=== PATIENT | male | born 1940 | race American Indian/Alaskan Native ===

== ENCOUNTER 2017-07-20 17:09 | Observation (INO) | payer MEDICARE ==
[2017-07-20 18:37] LABS: #Eosinphils 0.1 thou/uL (0.0-0.7); #Lymphocytes 1.2 thou/uL (1.20-3.40); #Monocytes 0.4 thou/uL (0.11-0.59); #Neutrophils 7.1 thou/uL (1.40-6.50); %Basophils 0.5 % (0.0-1.0); %Eosinophils 0.7 % (0.0-10.0); %Lymphocytes 13.3 % (21.0-51.0); %Monocytes 4.5 % (0.0-10.0); Hemoglobin 15.4 g/dL (14.0-18.0); Mean Corpuscular HGB CONC 33.4 g/dL (32.0-36.0); Mean Corpuscular Hemoglobin 31.3 pg (27.0-31.0); Mean Corpuscular Volume 93.6 fl (80.0-94.0); Mean Platelet Volume 7.1 fL (7.4-10.4); Platelet Count 174 thou/uL (130-400); RBC Distribution Width 11.1 % (11.5-14.5); Red Blood Cell (RBC) Count 4.92 mill/uL (4.70-6.10); White Blood Cell (WBC) Count 8.7 thou/uL (4.8-10.8)
[2017-07-20] MEDS ORDERED: Ondansetron HCl/PF 4 MG/2 ML Vial ONE ×2 (18:53→19:42)
[2017-07-20 18:58] LABS: ALT (SGPT) 18 U/L (8-55); AST (SGOT) 23 U/L (5-34); Albumin 4.7 g/dL (3.4-4.8); Alkaline Phosphatase 77 U/L (40-150); Anion Gap 13 mmol/L (10-20); BUN (Urea Nitrogen) 13 mg/dL (8.4-25.7); Bilirubin, Total 0.8 mg/dL (0.2-1.2); Calc. Creatinine Clearance 0 mL/min (70-130); Calcium 9.8 mg/dL (7.8-10.44); Carbon Dioxide 29 mmol/L (23-31); Chloride 91 mmol/L (98-107); Estimated GFR-MDRD 87; Globulin 3.2 g/dL (2.4-3.5); Glucose 128 mg/dL (83-110); Potassium 4.5 mmol/L (3.5-5.1); Protein, Total 7.9 g/dL (5.8-8.1); Sodium 128 mmol/L (136-145)
[2017-07-20] MEDS ORDERED: Labetalol HCl 100 MG/20 ML VIAL SLOW IVP SCH (20:15)
[2017-07-20 20:30] LABS: Clarity Clear (Clear); pH, Urine 7.5 (5.0-9.0)
[2017-07-20 20:31] LABS: Bilirubin Negative (Negative); Blood, Urine Trace (Negative); Glucose, Urine (Dipstick) Negative (Negative); Leukocyte Negative (Negative); Nitrite Negative (Negative); Protein, Urine (Dipstick) 100 mg/dL (Neg-Trace); Urobilinogen 0.2 mg/dL (0.2-1.0)
[2017-07-20 20:39] LABS: Bacteria/HPF None Seen HPF (None Seen); Hyaline Casts/LPF 0-3 HYALINE CAST LPF (0-3 Hyaline); Pathc Cast-AUWi Flag 0.13 (0-2.49); Squamous Epithelial None Seen HPF (0-3); WBC/HPF None Seen HPF (0-3)
[2017-07-20] MEDS ORDERED: Promethazine HCl 25 MG/ML VIAL ONE (20:41)
[2017-07-20] MEDS ORDERED: Labetalol HCl 100 MG/20 ML VIAL ONE (20:41)
[2017-07-20 20:58] LABS: CKMB 1.5 ng/mL (0-6.6)
--- NOTE | 2017-07-20 22:02 | RAD ---
CHEST ONE VIEW ABDOMEN TWO VIEWS: History: Vomiting. FINDINGS/IMPRESSION: The heart size is normal. The lungs are clear. No free air or differential air fluid levels are seen. The bowel gas pattern is unremarkable. There are degenerative changes of the spine. POS: [facility]
[2017-07-20] MEDS ORDERED: Nitroglycerin 2% Ointment 1 INCH/1 GM Packet ONE (22:47)
[2017-07-21 00:12] LABS: Troponin I 0.014 ng/mL (< 0.028)
[2017-07-21] MEDS ORDERED: Ondansetron ODT 4 MG TAB SL PRN (00:20)
[2017-07-21] MEDS ORDERED: Acetaminophen 325 MG TAB PO PRN ×2 (00:20→20:07)
[2017-07-21] MEDS ORDERED: Ondansetron HCl/PF 4 MG/2 ML Vial IVP PRN (00:20)
[2017-07-21] MEDS ORDERED: Labetalol HCl 100 MG/20 ML VIAL SLOW IVP PRN (00:21)
[2017-07-21] MEDS ORDERED: Sodium Chloride 0.9% 1,000 ML IV SCH (01:00)
[2017-07-21] MEDS: Sodium Chloride 0.9% 1,000 ML IV SCH ×3 (02:23→22:16)
[2017-07-21 03:35] LABS: Anion Gap 14 mmol/L (10-20); BUN (Urea Nitrogen) 13 mg/dL (8.4-25.7); Calc. Creatinine Clearance 93 mL/min (70-130); Calcium 8.5 mg/dL (7.8-10.44); Carbon Dioxide 25 mmol/L (23-31); Chloride 93 mmol/L (98-107); Estimated GFR-MDRD Greater than 90; Glucose 120 mg/dL (83-110); Magnesium 1.6 mg/dL (1.6-2.6); Potassium 3.8 mmol/L (3.5-5.1); Sodium 128 mmol/L (136-145)
[2017-07-21 03:39] LABS: Troponin I 0.013 ng/mL (< 0.028)
[2017-07-21] MEDS: Losartan 25 MG TAB PO SCH (09:25)
[2017-07-21] MEDS: Flecainide 50 MG TAB PO SCH ×2 (09:25→20:22)
[2017-07-21] MEDS: Aspirin 81 mg Enteric Coated Tablet PO SCH (09:25)
[2017-07-21] MEDS: Clopidogrel Bisulfate 75 MG TAB PO SCH (09:25)
[2017-07-21] MEDS: OXcarbazepine 300 MG TAB PO SCH ×2 (09:26→20:22)
[2017-07-21] MEDS: Rosuvastatin 20 MG TAB PO SCH (09:26)
--- NOTE | 2017-07-21 14:56 | HP ---
HISTORY OF PRESENT ILLNESS: Patient is a 77-year-old male who presented to the emergency room compla ining of nausea, vomiting. The patient has been noting continuous vomiting for approximately 16 hour s prior to admission. He noted he has a history of hypertension, TIA, trigeminal neuralgia, cervical meningioma. He has had intractable vomiting, no diarrhea, no fever, no body aches. He does note ot her members of the family have had some flu-like illnesses. He has not noted any abdominal pain. He states he has tried multiple things to relieve his vomiting. He does note he has been able to pass gas. He has not noted any fever otherwise. He was seen and evaluated in the ER and was found to be slightly hypertensive. He denies any chest pain or shortness of breath otherwise noted. At this time, he is currently resting in bed comfortable, feeling a little bit better. ALLERGIES: He has no known allergies. CURRENT MEDICATIONS: Aspirin 81 mg daily, flecainide 50 mg daily, Vascepa 1 gram daily, Plavix 75 mg daily, Crestor 10 mg daily, famotidine 10 mg daily, losartan 100 mg daily. PAST MEDICAL HISTORY: Significant for hyperlipidemia, he does have a history of trigeminal stuart ralgia, hypertension. He also has a meningioma in the posterior neck. PAST SURGICAL HISTORY: Positive for tonsillectomy. SOCIAL/PERSONAL HISTORY: He does drink. He does not smoke. REVIEW OF SYSTEMS: Gastrointestinal: Positive as above. Genitourinary: Negative. Cardiovascular: Otherwise, negative. Neurological: Otherwise, negative. PHYSICAL EXAMINATION: VITAL SIGNS: Temperature 98.6, pulse 68, respirations 16, O2 sats 95%, blood pressure 106/51. GENERAL: He is alert, active, in no acute distress. HEENT: Normocephalic, atraumatic. Extraocular muscles intact. Sclerae and conjunctivae clear. Thr oat clear. NECK: Supple, full range of motion, no masses. LUNGS: Clear. HEART: Regular rate and rhythm without murmurs, gallops or rubs. ABDOMEN: Soft. Bowel sounds are present and active. There is no hepatosplenomegaly is noted. Ther e is no evidence of rebound or guarding otherwise noted at this time. EXTREMITIES: Reveal no evidence of clubbing, edema or cyanosis otherwise noted. LABORATORY DATA AND X-RAY FINDINGS: His white blood count 8.7, hemoglobin 15.4, hematocrit 46.1, sod ium 128, potassium 3.8, chloride 93, CO2 of 25, BUN 13, creatinine 0.81. Serum troponins are otherwi se negative. Urinalysis is clear. Acute abdominal series shows no evidence of any significant obstr uction, normal bowel pattern is otherwise noted. IMPRESSION: Intractable vomiting seems to be improving at this time, possibly a viral mediated. PLAN: The patient has been placed in observation. We will be continuing monitoring. IV fluids will be given. Further treatment and recommendations based on his improvement.
[2017-07-21 15:33] VITALS: BMI 25.7
[2017-07-21] MEDS ORDERED: HYDROcodone/Acetaminophen 10/325 mg Tablet PO PRN (20:08)
[2017-07-21] MEDS: Benzonatate 100 MG CAP PO SCH (22:15)
[2017-07-22 04:30] LABS: #Eosinphils 0.1 thou/uL (0.0-0.7); #Lymphocytes 2.5 thou/uL (1.20-3.40); #Monocytes 0.8 thou/uL (0.11-0.59); #Neutrophils 5.4 thou/uL (1.40-6.50); %Basophils 0.4 % (0.0-1.0); %Eosinophils 1.5 % (0.0-10.0); %Lymphocytes 27.6 % (21.0-51.0); %Monocytes 9.4 % (0.0-10.0); %Neutrophils 61.1 % (42.0-75.0); Hemoglobin 13.1 g/dL (14.0-18.0); Mean Corpuscular HGB CONC 33.7 g/dL (32.0-36.0); Mean Corpuscular Hemoglobin 31.9 pg (27.0-31.0); Mean Corpuscular Volume 94.7 fl (80.0-94.0); Mean Platelet Volume 7.1 fL (7.4-10.4); Platelet Count 169 thou/uL (130-400); RBC Distribution Width 11.4 % (11.5-14.5); Red Blood Cell (RBC) Count 4.12 mill/uL (4.70-6.10); White Blood Cell (WBC) Count 8.9 thou/uL (4.8-10.8)
[2017-07-22 04:39] LABS: Anion Gap 10 mmol/L (10-20); BUN (Urea Nitrogen) 13 mg/dL (8.4-25.7); Calc. Creatinine Clearance 80 mL/min (70-130); Calcium 8.6 mg/dL (7.8-10.44); Carbon Dioxide 29 mmol/L (23-31); Chloride 99 mmol/L (98-107); Estimated GFR-MDRD 77; Glucose 94 mg/dL (83-110); Sodium 134 mmol/L (136-145)
[2017-07-22 04:58] VITALS: TEMP 98.6
[2017-07-22] MEDS: Benzonatate 100 MG CAP PO SCH (05:57)
[2017-07-22 08:08] VITALS: BP 160/77
--- NOTE | 2017-07-22 08:18 | DPRG ---
DATE OF SERVICE: 07/22/2017 Mr. Zazueta is resting well. He reports no complaints. He is tolerating all p.o. intake. VITAL SIGNS: Temperature 98.6, BP 146/67. LABORATORY: Hemoglobin 13.1, hematocrit 39.0, white blood count 8.9, potassium is 4.0. HOSPITAL SUMMARY: He has resolved his intractable vomiting. He is now tolerating all p.o. liquids. DISCHARGE DIAGNOSES: Intractable vomiting. DATE OF ADMISSION: 07/21/2017 DATE OF DISCHARGE: 07/22/2017 The patient will be discharged home on his home medications. Follow up with me on a p.r.n. basis.
[2017-07-22] MEDS: Clopidogrel Bisulfate 75 MG TAB PO SCH (08:46)
[2017-07-22] MEDS: Losartan 25 MG TAB PO SCH (08:46)
[2017-07-22] MEDS: OXcarbazepine 300 MG TAB PO SCH (08:46)
[2017-07-22] MEDS: Flecainide 50 MG TAB PO SCH (08:47)
[2017-07-22] MEDS: Rosuvastatin 20 MG TAB PO SCH (08:47)
[2017-07-22] MEDS: Aspirin 81 mg Enteric Coated Tablet PO SCH (08:47)
[2017-07-22] MEDS: Sodium Chloride 0.9% 1,000 ML IV SCH (08:51)
== END 2017-07-22 10:52 | disposition home or self-care (01) ==
LOC: ERS 17:09 → 2SW 22:42
PROVIDERS: ADMIT Family Medicine; ATTEND Family Medicine
DX: R11.2 Nausea with vomiting, unspecified (principal); I10 Essential (primary) hypertension; G50.0 Trigeminal neuralgia; E78.5 Hyperlipidemia, unspecified; D23.4 Other benign neoplasm of skin of scalp and neck; Z79.82 Long term (current) use of aspirin; Z79.899 Other long term (current) drug therapy; Z90.89 Acquired absence of other organs; Z86.73 Personal history of transient ischemic attack (TIA), and cerebral infarction without residual deficits
CPT/HCPCS: 74022; 80048 ×2; 80053; 82553; 83690; 83735; 84484 ×3; 85025 ×2; 93005; 96361 ×3; 96372; 96374; 96375; 96376; 99285; G0378; 36415; 81003; 81015; A4216; J2405; J2550

== ENCOUNTER 2018-08-01 08:53 | Outpatient (CLI) | payer MEDICARE ==
--- NOTE | 2018-08-01 11:01 | MRI ---
MRI CERVICAL SPINE WITHOUT CONTRAST: HISTORY: Trigeminal neuralgia. 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 COMPARISON: None. CORRELATION: Brain MRI from 11/02/2016. TECHNIQUE: An MRI of the cervical spine is performed with and without intravenous Gadolinium administration. Mu ltisequential, multiplanar imaging is performed. FINDINGS: Based on current protocol, a left parapharyngeal mass and a right dural prepontine mass cannot be ass essed. In order to assess those lesions, an MRI of the soft tissues of the neck and a brain MRI shou ld be performed, respectively. Both studies should be with and without contrast. There is appropriate T1 marrow signal intensity of the cervical vertebrae. Cervical spine vertebral body height is maintained. There is no fracture. Minimal type II modic changes at C6-C7. There is no prevertebral soft tissue swelling or edema. No MR evidence of ligamentous injury on the sagittal STIR sequence. The visualized brain parenchyma, cervicomedullary junction, cervical cord, and upper thoracic cord yusuf ve normal size and signal intensity. On the sagittal images, there is evidence of an abnormal signal intensity in the right CP angle ciste rn, incompletely evaluated. C2-C3: No significant central canal stenosis. The foramina are patent. C3-C4: No significant central canal stenosis. Mild right and moderate left foraminal narrowing due to uncovertebral hypertrophy. C4-C5: There is a central/left paracentral disk protrusion. There is mass effect and deformity of t he ventral thecal sac. Mild mass effect upon the left hemicord. No cord signal abnormality. Mild c entral canal stenosis. Moderate right and moderate to severe left foraminal narrowing due to uncover tebral hypertrophy. C5-C6: There is moderate loss of disk space height. There is a broad-based disk osteophyte complex. The ventral subarachnoid space is effaced. Minimal flattening of the cervical cord. Mild to moder ate central canal stenosis. No signal abnormality in the cord. Mild right and mild to moderate left foraminal narrowing due to uncovertebral hypertrophy. C6-C7: Broad-based disk osteophyte complex with mild central canal stenosis. The right neural maxi en is patent. Minimal left foraminal narrowing. C7-T1: No significant central canal stenosis or foraminal narrowing. IMPRESSION: 1. Degenerative changes of the cervical spine, as described above. 2. Based on the current protocol, a left parapharyngeal mass and a right cerebellopontine angle cist amita mass cannot be adequately assessed. If there is concern, a pre and post contrast soft tissue nec k MRI and a pre and post contrast brain MRI can be performed, respectively. POS: [facility]
== END 2018-08-01 08:54 | disposition home or self-care (01) ==
LOC: SCSMRI 08:53
DX: G50.0 Trigeminal neuralgia (principal); M47.892 Other spondylosis, cervical region
CPT/HCPCS: 72141

== ENCOUNTER 2018-08-07 19:30 | Outpatient (CLI) | payer MEDICARE | END 2018-08-07 19:31 | disposition home or self-care (01) | LOC: SLEEPLAB 19:30 | PROVIDERS: ATTEND Family Medicine | DX: G47.33 Obstructive sleep apnea (adult) (pediatric) (principal) | CPT/HCPCS: 95811 ==

== ENCOUNTER 2019-01-11 11:34 | Emergency (ER) | payer MEDICARE | END 2019-01-11 12:00 | disposition home or self-care (01) | LOC: SCSER 11:34 | DX: S60.222A Contusion of left hand, initial encounter (principal); E78.5 Hyperlipidemia, unspecified; I10 Essential (primary) hypertension; Z86.73 Personal history of transient ischemic attack (TIA), and cerebral infarction without residual deficits; Z79.899 Other long term (current) drug therapy; Z79.82 Long term (current) use of aspirin; W01.198A Fall on same level from slipping, tripping and stumbling with subsequent striking against other object, initial encounter | CPT/HCPCS: 99283 ==

== ENCOUNTER 2019-01-27 15:53 | Emergency (ER) | payer MEDICARE ==
[2019-01-27] MEDS ORDERED: Ketorolac Tromethamine 30 MG/ML VIAL ONE (16:24)
[2019-01-27] MEDS ORDERED: Lidocaine Viscous Sol 2% 15 ml UD Cup ONE (16:25)
--- NOTE | 2019-01-27 17:04 | RAD ---
THREE VIEWS OF THE RIGHT SECOND FINGER 01/27/19 COMPARISON: None. HISTORY: Injury, trauma, pain. FINDINGS: There is a punctate radiopaque foreign body suspected within the soft tissues distal to the second di stal phalanx measuring 2 mm in length. No displaced fracture or evidence of dislocation is noted. IMPRESSION: Findings suggesting a punctate foreign body within the soft tissues distal to the second distal phala nx. POS: [facility]
[2019-01-27] MEDS ORDERED: Lidocaine 1% PF 5 ML VIAL ONE (17:28)
[2019-01-27] MEDS ORDERED: Bacitracin Zinc Ointment 30 gm TUBE ONE (17:44)
[2019-01-27] MEDS ORDERED: Bacitracin 1 PK ONE (17:44)
== END 2019-01-27 17:48 | disposition home or self-care (01) ==
LOC: SCSER 15:53
DX: S60.450A Superficial foreign body of right index finger, initial encounter (principal); E78.5 Hyperlipidemia, unspecified; I10 Essential (primary) hypertension; Z79.82 Long term (current) use of aspirin; Z79.01 Long term (current) use of anticoagulants; W26.9XXA Contact with unspecified sharp object(s), initial encounter
CPT/HCPCS: 96372; J1885; J2001

== ENCOUNTER 2020-11-13 13:16 | Inpatient (IN) | payer MEDICARE ==
[~2020-11-13 13:16] MED LIST: Iopamidol-370 76% 500 ML 1 ML ONE
[2020-11-13] MEDS ORDERED: Rocuronium Bromide 10 MG/ML (10ML VIAL) ONE ×2 (13:21→17:40)
[2020-11-13] MEDS ORDERED: niCARdipine 20MG In NaCl 20 MG/200 ML BAG ONE ×2 (13:23→16:16)
[2020-11-13] MEDS ORDERED: manNITOL 20% 0 ML ONE (13:23)
[2020-11-13] MEDS ORDERED: fentaNYL Citrate/PF 2,000 MCG in Sodium Chloride 0.9% 60 ML IV SCH (13:45)
[2020-11-13 13:56] LABS: Actual Bicarbonate (HCO3a) 22.5 mEq/L (22-28); Analyzer IN Cardio ER; Base Excess (BEa) -0.8 mEq/L (-2.0 to +3.0); CO2 Tension 33.6 mmHg (35.0-45.0); Calcium, Ionized (arterial) 1.16 mmol/L (1.12-1.30); Carboxyhemoglobin (COHb) 0.1 gm% (0.0-3.0); Hemoglobin (Hb) 15.2 g/dL (14.0-18.0); Potassium - ABG Lab 3.37 mmol/L (3.70-5.30); pH, Arterial 7.44 (7.35-7.45)
[2020-11-13 13:58] LABS: O2 Tension (PaO2), arterial 582.8 mmHg (> 70.0)
[2020-11-13 13:59] LABS: Puncture Site RRA
[2020-11-13 14:02] LABS: #Basophils 0.1 thou/uL (0.0-0.2); #Eosinphils 0.1 thou/uL (0.0-0.7); #Lymphocytes 2.3 thou/uL (1.20-3.40); #Monocytes 0.5 thou/uL (0.11-0.59); #Neutrophils 9.4 thou/uL (1.40-6.50); %Basophils 0.7 % (0.0-1.0); %Eosinophils 0.7 % (0.0-10.0); %Lymphocytes 18.4 % (21.0-51.0); %Monocytes 3.9 % (0.0-10.0); %Neutrophils 76.4 % (42.0-75.0); Hemoglobin 14.7 g/dL (14.0-18.0); Mean Corpuscular HGB CONC 31.7 g/dL (32.0-36.0); Mean Corpuscular Hemoglobin 30.4 pg (27.0-31.0); Mean Corpuscular Volume 95.8 fL (78.0-98.0); Mean Platelet Volume 8.2 fL (7.4-10.4); Platelet Count 146 thou/uL (130-400); RBC Distribution Width 11.9 % (11.5-14.5); Red Blood Cell (RBC) Count 4.84 mill/uL (4.70-6.10); White Blood Cell (WBC) Count 12.2 thou/uL (4.8-10.8)
[2020-11-13 14:14] LABS: PTT 25.4 sec (22.9-36.1); Prothrombin Time 13.5 sec (12.0-14.7)
[2020-11-13 14:18] LABS: Albumin 4.8 g/dL (3.4-4.8); Bilirubin, Total 0.8 mg/dL (0.2-1.2); Calcium 10.2 mg/dL (7.8-10.44); Carbon Dioxide 24 mmol/L (23-31); Chloride 103 mmol/L (98-107); Globulin 3.2 g/dL (2.4-3.5); Glucose 161 mg/dL (83-110); Potassium 3.3 mmol/L (3.5-5.1); Sodium 142 mmol/L (136-145)
[2020-11-13 14:19] LABS: Alkaline Phosphatase 71 U/L (40-110)
[2020-11-13 14:20] LABS: BUN (Urea Nitrogen) 8 mg/dL (8.4-25.7); Calc. Creatinine Clearance 0 mL/min (70-130)
[2020-11-13 14:21] LABS: AST (SGOT) 34 U/L (5-34)
[2020-11-13 14:22] LABS: ALT (SGPT) 29 U/L (8-55); CK (CPK) 218 U/L (30-200)
[2020-11-13 14:33] LABS: Bilirubin Negative (Negative); Blood, Urine Negative (Negative); Clarity Clear (Clear); Glucose, Urine (Dipstick) 50 mg/dL (Negative); Ketone, Urine 10 mg/dL (Negative); Leukocyte Negative Leu/uL (Negative); Nitrite Negative (Negative); Protein, Urine (Dipstick) 10 mg/dL (Neg-Trace); Specific Gravity, Urine 1.008 (1.002-1.036); Urobilinogen Normal mg/dL (Less than 2); pH, Urine 7.5 (5.0-9.0)
[2020-11-13 14:35] LABS: Anion Gap 17 mmol/L (10-20)
[2020-11-13] MEDS ORDERED: Thrombin 5000 UNITS/5 ML VIAL ONE (15:35)
[2020-11-13] MEDS ORDERED: Sodium Chloride 0.9% 20 ML ONE (15:35)
[2020-11-13] MEDS ORDERED: Bacitracin Zinc Ointment 30 gm TUBE ONE (15:35)
[2020-11-13] MEDS ORDERED: Lidocaine 0.5%/Epinephrine 1:200,000 50 ml Vial ONE (15:35)
[2020-11-13 15:50] LABS: SARS-CoV-2 NAA Rapid Test Not Detected (NotDetected)
[2020-11-13] MEDS ORDERED: Fentanyl 100 MCG/2 ML VIAL ONE (17:29)
[2020-11-13] MEDS ORDERED: Ondansetron PF 4 MG/2 ML Vial IVP PRN (17:40)
[2020-11-13] MEDS ORDERED: hydrALAZINE 20 MG/ML VIAL SLOW IVP PRN (17:40)
[2020-11-13] MEDS ORDERED: PROPOFOL 200 MG/20 ML VIAL ONE (17:40)
[2020-11-13] MEDS ORDERED: Acetaminophen 325 MG TAB PO PRN (17:40)
[2020-11-13] MEDS: Potassium Chloride 20 MEQ in Premix Bag 1 BAG IVPB SCH ×2 (18:00→20:10)
[2020-11-13] MEDS ORDERED: Labetalol HCl 100 MG/20 ML VIAL SLOW IVP PRN (18:49)
[2020-11-13] MEDS ORDERED: Morphine 4 MG/ML VIAL SLOW IVP PRN (18:49)
[2020-11-13] MEDS ORDERED: Promethazine HCl 12.5 MG SUPP PR PRN (18:49)
[2020-11-13 19:21] LABS: Actual Bicarbonate (HCO3a) 23.3 mEq/L (22-28); Base Excess (BEa) -0.3 mEq/L (-2.0 to +3.0); CO2 Tension 34.9 mmHg (35.0-45.0); Calcium, Ionized (arterial) 1.12 mmol/L (1.12-1.30); Carboxyhemoglobin (COHb) 0.4 gm% (0.0-3.0); Hemoglobin (Hb) 13.8 g/dL (14.0-18.0); O2 Tension (PaO2), arterial 115.5 mmHg (> 70.0); Potassium - ABG Lab 3.19 mmol/L (3.70-5.30); pH, Arterial 7.44 (7.35-7.45)
[2020-11-13 19:24] LABS: ALV-art Gradient 126.075 mmHg (0-20); Puncture Site LRA
[2020-11-13] MEDS: levETIRAcetam in NS 500 MG in Premix Bag 1 BAG IVPB SCH (20:25)
[2020-11-13] MEDS: Sodium Chloride 0.9% 1,000 ML IV SCH (20:27)
[2020-11-13] MEDS: CEFAZOLIN 2 GM in Premix Bag 1 BAG IVPB SCH (20:36)
[2020-11-13] MEDS: Pantoprazole 40 MG VIAL IVP SCH (20:36)
[2020-11-13] MEDS: niMODipine 30 MG CAP PER TUBE SCH (20:39)
[2020-11-13] MEDS: niCARdipine 25 MG in Sodium Chloride 0.9% 250 ML 250 ML IVPB SCH (20:46)
[2020-11-13] MEDS ORDERED: Pantoprazole 40 MG in Sodium Chloride 0.9% 100 ML IVPB SCH (21:00)
[2020-11-13] MEDS ORDERED: Famotidine 20 MG TAB PO SCH (21:00)
[2020-11-14] MEDS: niMODipine 30 MG CAP PER TUBE SCH ×2 (01:44→09:45)
[2020-11-14] MEDS: CEFAZOLIN 2 GM in Premix Bag 1 BAG IVPB SCH ×2 (05:24→12:34)
[2020-11-14] MEDS: niCARdipine 25 MG in Sodium Chloride 0.9% 250 ML 250 ML IVPB SCH (07:26)
[2020-11-14] MEDS: levETIRAcetam in NS 500 MG in Premix Bag 1 BAG IVPB SCH (09:44)
[2020-11-14] MEDS: Pantoprazole 40 MG VIAL IVP SCH (09:45)
[2020-11-14] MEDS: Sodium Chloride 0.9% 1,000 ML IV SCH ×2 (09:46→13:54)
[2020-11-14 10:01] LABS: Anion Gap 19 mmol/L (10-20); BUN (Urea Nitrogen) 11 mg/dL (8.4-25.7); Calc. Creatinine Clearance 75 mL/min (70-130); Carbon Dioxide 18 mmol/L (23-31); Chloride 107 mmol/L (98-107); Glucose 137 mg/dL (83-110); Potassium 4.2 mmol/L (3.5-5.1); Sodium 140 mmol/L (136-145)
[2020-11-14 10:05] LABS: Hemoglobin A1c 5.5 % (4.0-6.0)
[2020-11-14 12:30] LABS: Hemoglobin 14.1 g/dL (14.0-18.0); Mean Corpuscular HGB CONC 32.7 g/dL (32.0-36.0); Mean Corpuscular Hemoglobin 30.9 pg (27.0-31.0); Mean Corpuscular Volume 94.5 fL (78.0-98.0); Mean Platelet Volume 9.5 fL (7.4-10.4); Platelet Count 126 thou/uL (130-400); Red Blood Cell (RBC) Count 4.56 mill/uL (4.70-6.10); White Blood Cell (WBC) Count 18.6 thou/uL (4.8-10.8)
[2020-11-14 12:49] LABS: Band 44 % (5-11); Lymphocytes 2 % (21-51); MDiff Complete? YES; Metamyelocyte 2 % (0-0); Monocytes 6 % (0-10); Neutrophil 45 % (42-75); Reactive Lymphocytes 1 % (0-10); Reflex for Review?? YES
[2020-11-14 13:25] VITALS: BMI 24.3
[2020-11-14] MEDS ORDERED: Lorazepam 2 MG/ML VIAL SLOW IVP PRN (16:01)
[2020-11-14] MEDS ORDERED: Morphine 4 MG/ML VIAL SLOW IVP PRN (16:01)
[2020-11-14 18:21] VITALS: TEMP 98.3
== END 2020-11-14 18:23 | disposition hospice, inpatient (51) | DRG 23 ==
LOC: ERS 13:16 → CCU 17:41 → SDC 17:42 → CCU 18:54
PROVIDERS: ADMIT Internal Medicine; ATTEND Internal Medicine
PROC: 009600Z Drainage of Cerebral Ventricle with Drainage Device, Open Approach (ICD-10-PCS; principal; 2020-11-13)
PROC: 30233R1 Transfusion of Nonautologous Platelets into Peripheral Vein, Percutaneous Approach (ICD-10-PCS; 2020-11-13)
PROC: 5A1935Z Respiratory Ventilation, Less than 24 Consecutive Hours (ICD-10-PCS; 2020-11-13)
PROC: 0D9670Z Drainage of Stomach with Drainage Device, Via Natural or Artificial Opening (ICD-10-PCS; 2020-11-13)
PROC: 0BH17EZ Insertion of Endotracheal Airway into Trachea, Via Natural or Artificial Opening (ICD-10-PCS; 2020-11-13)
DX: I60.4 Nontraumatic subarachnoid hemorrhage from basilar artery (principal); J96.01 Acute respiratory failure with hypoxia; G93.5 Compression of brain; G91.8 Other hydrocephalus; I67.848 Other cerebrovascular vasospasm and vasoconstriction; G81.91 Hemiplegia, unspecified affecting right dominant side; I16.1 Hypertensive emergency; Z20.822 Contact with and (suspected) exposure to COVID-19; Z51.5 Encounter for palliative care; Z66 Do not resuscitate; E78.5 Hyperlipidemia, unspecified; G50.0 Trigeminal neuralgia; I10 Essential (primary) hypertension; R73.03 Prediabetes; D72.829 Elevated white blood cell count, unspecified; E87.6 Hypokalemia; I48.0 Paroxysmal atrial fibrillation; I61.5 Nontraumatic intracerebral hemorrhage, intraventricular; K21.9 Gastro-esophageal reflux disease without esophagitis; E78.00 Pure hypercholesterolemia, unspecified; R00.1 Bradycardia, unspecified; Z79.82 Long term (current) use of aspirin; Z86.018 Personal history of other benign neoplasm; Z90.89 Acquired absence of other organs; Z79.899 Other long term (current) drug therapy; Z79.02 Long term (current) use of antithrombotics/antiplatelets; Z78.1 Physical restraint status; Z86.73 Personal history of transient ischemic attack (TIA), and cerebral infarction without residual deficits
CPT/HCPCS: 0240U; 31500; 36415; 36416; 36430; 36600; 51702; 70450; 70496; 71045; 74018; 80048; 80053; 81003; 82550; 82805; 83036; 83735; 84484; 85025; 85060; 85610; 85730; 86850; 86900; 86901; 87086; 93005; 94002; 94003; 96365; 96366; 99292; C9113; J0690; J1953; J2001; J2270; J2704; J2997; J3010; J3480; J3490; J7050; J7799; P9035; Q9967

== ENCOUNTER 2020-11-14 18:32 | Inpatient (IN) | payer OTHER ==
[2020-11-14] MEDS ORDERED: Scopolamine 1.5 mg/72 hour Patch TOP PRN (18:48)
[2020-11-14] MEDS ORDERED: Lorazepam 2 MG/ML VIAL SLOW IVP PRN (18:48)
[2020-11-14] MEDS: Morphine 4 MG/ML VIAL SLOW IVP PRN ×3 (19:20→22:11)
[2020-11-15] MEDS: Morphine 4 MG/ML VIAL SLOW IVP SCH ×8 (00:14→23:51)
[2020-11-15] MEDS: Lorazepam 2 MG/ML VIAL SLOW IVP SCH ×8 (00:15→23:51)
[2020-11-15] MEDS: Morphine 4 MG/ML VIAL SLOW IVP PRN (01:22)
[2020-11-15] MEDS ORDERED: Atropine Sulfate 1% Ophth Soln 5 ml Bottle PO PRN ×2 (18:56→19:35)
[2020-11-16] MEDS: Morphine 4 MG/ML VIAL SLOW IVP SCH ×11 (01:56→21:55)
[2020-11-16] MEDS: Lorazepam 2 MG/ML VIAL SLOW IVP SCH ×11 (01:56→21:55)
[2020-11-16 20:06] VITALS: BP 167/87; TEMP 103.9
[2020-11-16] MEDS: Morphine 4 MG/ML VIAL SLOW IVP PRN (20:27)
[2020-11-17] MEDS: Lorazepam 2 MG/ML VIAL SLOW IVP SCH ×2 (00:01→02:11)
[2020-11-17] MEDS: Morphine 4 MG/ML VIAL SLOW IVP SCH ×2 (00:01→02:14)
[2020-11-17] MEDS: Morphine 4 MG/ML VIAL SLOW IVP PRN (02:39)
== END 2020-11-17 02:43 | disposition expired | DRG 951 ==
LOC: CCU 18:32 → ONC 11-15 00:03
PROVIDERS: ADMIT Family Medicine; ATTEND Family Medicine
DX: Z51.5 Encounter for palliative care (principal); I60.9 Nontraumatic subarachnoid hemorrhage, unspecified; J96.01 Acute respiratory failure with hypoxia; G81.91 Hemiplegia, unspecified affecting right dominant side; I16.1 Hypertensive emergency; I67.1 Cerebral aneurysm, nonruptured; I10 Essential (primary) hypertension; E87.6 Hypokalemia; I48.0 Paroxysmal atrial fibrillation; D72.829 Elevated white blood cell count, unspecified; E78.5 Hyperlipidemia, unspecified; Z79.82 Long term (current) use of aspirin; Z79.02 Long term (current) use of antithrombotics/antiplatelets; Z90.89 Acquired absence of other organs; Z98.890 Other specified postprocedural states
CPT/HCPCS: J2060; J2270